=== PATIENT | male | born 1950 | race Two or more races ===

== ENCOUNTER 2017-06-26 17:17 | Emergency (ER) | payer OTHER ==
[~2017-06-26] VITALS: Ht 167.6 cm; Wt 75.3 kg
[2017-06-26 18:14] LABS: CARBON DIOXIDE 25 mmol/L (21-32); CHLORIDE 104 mmol/L (98-107); GLUCOSE 96 mg/dL (74-106); POTASSIUM 4.2 mmol/L (3.5-5.1); UREA NITROGEN, BLOOD 20 mg/dL (7-18)
[2017-06-26 18:21] LABS: ALANINE AMINOTRANSFERASE 34 U/L (16-63); ALKALINE PHOSPHATASE 68 U/L (50-136); ASPARTATE AMINOTRANSFERASE 20 U/L (15-37); BILIRUBIN,DIRECT < 0.1 mg/dL (0.0-0.2); BILIRUBIN,TOTAL 0.2 mg/dL (0.2-1.0); TOTAL PROTEIN, SERUM 7.3 g/dL (6.4-8.2)
[2017-06-26 18:29] LABS: BASOPHILS % (AUTO) 0.5 % (0.0-2.0); EOSINOPHILS # (AUTO) 0.1 K/uL (0.0-0.7); EOSINOPHILS % (AUTO) 1.7 % (0.0-7.0); HEMATOCRIT 43.9 % (36.7-47.1); HEMOGLOBIN 14.5 g/dL (12.5-16.3); LYMPHOCYTES # (AUTO) 1.2 K/uL (20.0-40.0); LYMPHOCYTES % (AUTO) 16.1 % (20.5-51.5); MEAN CORPUSCULAR HEMOGLOBIN 29.2 uug (23.8-33.4); MEAN CORPUSCULAR HGB CONC 33 g/dL (32.5-36.3); MEAN CORPUSCULAR VOLUME 88.5 fL (73.0-96.2); MONOCYTES # (AUTO) 0.8 K/uL (2.0-10.0); MONOCYTES % (AUTO) 10.6 % (0.0-11.0); NEUTROPHILS # (AUTO) 5.4 K/uL (1.8-8.9); NEUTROPHILS % (AUTO) 71.1 % (38.5-71.5); PLATELET COUNT (AUTO) 227 K/uL (152-348); RED BLOOD CELL COUNT(AUTO) 4.96 MIL/uL (4.06-5.63); WHITE BLOOD COUNT (AUTO) 7.5 K/uL (3.6-10.2)
[2017-06-26 18:30] LABS: *BILIRUBIN,URIN NEGATIVE (NEGATIVE); *BLOOD, URINE NEGATIVE (NEGATIVE); *CLARITY,URINE CLEAR (CLEAR); *COLOR,URINE YELLOW (YELLOW); *KETONES,URINE TRACE (NEGATIVE); *PROTEIN,URINE NEGATIVE (NEGATIVE); LEUKOCYTE ESTERASE ,URINE NEGATIVE (NEGATIVE); NITRITE, URINE NEGATIVE (NEGATIVE); UGLUCOSE NEGATIVE (NEGATIVE)
[2017-06-26 18:31] LABS: BACTERIA,URINE NONE SEEN /HPF (NONE SEEN); RBC,URINE 0-3 /HPF (0-3); SQUAMOUS EPITHELIAL CELL,UR NONE SEEN /HPF (NONE SEEN); WBC,URINE 0-3 /HPF (0-3)
--- NOTE | 2017-06-26 18:45 | NUR ---
Dr. Steiner at bedside for MSE.
--- NOTE | 2017-06-26 19:05 | NUR ---
Hands off report given to Carl CADET.
[2017-06-26 19:25] LABS: THYROID STIMULATING HORMONE 1.451 mIU/mL (0.358-3.740)
[2017-06-26 19:27] LABS: ACETAMINOPHEN < 2.0 ug/mL (10-30)
[2017-06-26 19:51] LABS: ETHANOL < 3 MG/DL (0-0)
--- NOTE | 2017-06-26 20:10 | NUR ---
Call made to Christie MCKEONW for patient psych eval, reported ETA 20min ~[phone]
--- NOTE | 2017-06-26 20:15 | NUR ---
Patient came to nursing station requested permission from the doctor to go to his car to get something to eat. Patient out of ER with steady gait.
--- NOTE | 2017-06-26 20:24 | NUR ---
Christie Smalls LCSW arrived.
--- NOTE | 2017-06-26 20:29 | NUR ---
Patient back to ER.
--- NOTE | 2017-06-26 20:30 | NUR ---
Christie Smalls with patient for psych evaluation.
--- NOTE | 2017-06-26 21:00 | NUR ---
Patient discharged to home in stable conditon. Written and verbal after care instructions given. Patient verbalizes understanding of instructions. Patient ambulated out of ER with steady gait, no acute signs of distress, VSS, all belongings taken.
[2017-06-26 21:05] VITALS: BP 159/94
== END 2017-06-26 21:00 | disposition home or self-care (01) ==
LOC: ER 17:18
DX: T50.905A Adverse effect of unspecified drugs, medicaments and biological substances, initial encounter (principal); Y92.89 Other specified places as the place of occurrence of the external cause; Z59.0 Homelessness
CPT/HCPCS: 36415; 70030-TC; 70450; 71045; 84443; 85025; 85730; 93005; A4663; G0480; G0480-TC

== ENCOUNTER 2017-07-26 15:29 | Emergency (ER) | payer OTHER ==
[~2017-07-26] VITALS: Ht 170.2 cm; Wt 77.1 kg
[2017-07-26] MEDS ORDERED: IV NORMAL SALINE 1000 ML BAG IV ONE (17:15)
[2017-07-26 17:51] LABS: CARBON DIOXIDE 29 mmol/L (21-32); CHLORIDE 102 mmol/L (98-107); GLUCOSE 93 mg/dL (74-106); POTASSIUM 3.8 mmol/L (3.5-5.1); UREA NITROGEN, BLOOD 15 mg/dL (7-18)
[2017-07-26 17:52] LABS: BASOPHILS % (AUTO) 0.4 % (0.0-2.0); EOSINOPHILS # (AUTO) 0.1 K/uL (0.0-0.7); EOSINOPHILS % (AUTO) 1.1 % (0.0-7.0); HEMOGLOBIN 14.5 g/dL (12.5-16.3); LYMPHOCYTES # (AUTO) 0.9 K/uL (20.0-40.0); LYMPHOCYTES % (AUTO) 11.5 % (20.5-51.5); MEAN CORPUSCULAR HEMOGLOBIN 29.5 uug (23.8-33.4); MEAN CORPUSCULAR HGB CONC 34 g/dL (32.5-36.3); MEAN CORPUSCULAR VOLUME 87.5 fL (73.0-96.2); MONOCYTES # (AUTO) 0.6 K/uL (2.0-10.0); MONOCYTES % (AUTO) 8.4 % (0.0-11.0); NEUTROPHILS % (AUTO) 78.6 % (38.5-71.5); PLATELET COUNT (AUTO) 224 K/uL (152-348); RED BLOOD CELL COUNT(AUTO) 4.92 MIL/uL (4.06-5.63); WHITE BLOOD COUNT (AUTO) 7.7 K/uL (3.6-10.2)
[2017-07-26 17:52] LABS: *BILIRUBIN,URIN NEGATIVE (NEGATIVE); *BLOOD, URINE NEGATIVE (NEGATIVE); *CLARITY,URINE CLOUDY (CLEAR); *COLOR,URINE YELLOW (YELLOW); *KETONES,URINE NEGATIVE (NEGATIVE); *PROTEIN,URINE NEGATIVE (NEGATIVE); *UROBILINOGEN,URINE 0.2 E.U./dl (NORMAL); LEUKOCYTE ESTERASE ,URINE NEGATIVE (NEGATIVE); NITRITE, URINE NEGATIVE (NEGATIVE); PH,URINE 7.5 (5.0-8.0); UGLUCOSE NEGATIVE (NEGATIVE)
[2017-07-26 17:57] LABS: ALANINE AMINOTRANSFERASE 36 U/L (16-63); ALKALINE PHOSPHATASE 75 U/L (50-136); ASPARTATE AMINOTRANSFERASE 21 U/L (15-37); BILIRUBIN,DIRECT < 0.1 mg/dL (0.0-0.2); BILIRUBIN,TOTAL 0.1 mg/dL (0.2-1.0); TOTAL PROTEIN, SERUM 7.5 g/dL (6.4-8.2)
[2017-07-26 18:04] LABS: BACTERIA,URINE NONE SEEN /HPF (NONE SEEN); RBC,URINE 0-3 /HPF (0-3); SQUAMOUS EPITHELIAL CELL,UR NONE SEEN /HPF (NONE SEEN); URINE AMORPHOUS PHOSPHATES MANY /HPF; WBC,URINE 0-3 /HPF (0-3)
[2017-07-26] MEDS ORDERED: MECLIZINE HCL 25 MG TABLET ONE (18:38)
--- NOTE | 2017-07-26 18:39 | NUR ---
mse completed, all meds admin, iv/d.c'd intact, pt d/c'd home, aci/rx x1 given. pt ambulated w/o diff/took all belongings.
[2017-07-26 18:40] VITALS: BP 148/96
[2017-07-26] MEDS ORDERED: MECLIZINE HCL 25 MG TABLET PO ONE (18:45)
== END 2017-07-26 18:42 | disposition home or self-care (01) ==
LOC: ER 15:31
DX: H81.10 Benign paroxysmal vertigo, unspecified ear (principal); Z59.0 Homelessness; Z85.828 Personal history of other malignant neoplasm of skin
CPT/HCPCS: 36415; 70030-TC; 85025; 93005; A4663; J7030; J8597

== ENCOUNTER 2017-08-30 18:21 | Emergency (ER) | payer OTHER ==
[~2017-08-30] VITALS: Ht 170.2 cm; Wt 78.0 kg
--- NOTE | 2017-08-30 19:02 | NUR ---
Patient ambulated to ER bed 2A, pending MD evaluation, SBAR to HELIO Araujo accordingly
[2017-08-30 19:48] LABS: *BILIRUBIN,URIN NEGATIVE (NEGATIVE); *BLOOD, URINE NEGATIVE (NEGATIVE); *CLARITY,URINE SLIGHTLY CLOUDY (CLEAR); *COLOR,URINE YELLOW (YELLOW); *KETONES,URINE NEGATIVE (NEGATIVE); *PROTEIN,URINE NEGATIVE (NEGATIVE); *UROBILINOGEN,URINE 0.2 E.U./dl (NORMAL); LEUKOCYTE ESTERASE ,URINE NEGATIVE (NEGATIVE); NITRITE, URINE NEGATIVE (NEGATIVE); PH,URINE 7.5 (5.0-8.0); UGLUCOSE NEGATIVE (NEGATIVE)
[2017-08-30 19:51] LABS: BASOPHILS # (AUTO) 0.1 K/uL (0.0-8.0); BASOPHILS % (AUTO) 0.9 % (0.0-2.0); EOSINOPHILS # (AUTO) 0.2 K/uL (0.0-0.7); EOSINOPHILS % (AUTO) 3.2 % (0.0-7.0); HEMATOCRIT 43.4 % (36.7-47.1); HEMOGLOBIN 14.8 g/dL (12.5-16.3); LYMPHOCYTES # (AUTO) 1.6 K/uL (20.0-40.0); LYMPHOCYTES % (AUTO) 24.1 % (20.5-51.5); MEAN CORPUSCULAR HGB CONC 34 g/dL (32.5-36.3); MEAN CORPUSCULAR VOLUME 87.5 fL (73.0-96.2); MONOCYTES # (AUTO) 0.8 K/uL (2.0-10.0); MONOCYTES % (AUTO) 11.5 % (0.0-11.0); NEUTROPHILS # (AUTO) 3.9 K/uL (1.8-8.9); NEUTROPHILS % (AUTO) 60.3 % (38.5-71.5); PLATELET COUNT (AUTO) 230 K/uL (152-348); POTASSIUM 4.2 mmol/L (3.5-5.1); RED BLOOD CELL COUNT(AUTO) 4.96 MIL/uL (4.06-5.63); WHITE BLOOD COUNT (AUTO) 6.5 K/uL (3.6-10.2)
[2017-08-30 19:57] LABS: BACTERIA,URINE NONE SEEN /HPF (NONE SEEN); RBC,URINE 0-3 /HPF (0-3); SQUAMOUS EPITHELIAL CELL,UR NONE SEEN /HPF (NONE SEEN); URINE AMORPHOUS PHOSPHATES FEW /HPF; WBC,URINE 0-3 /HPF (0-3)
[2017-08-30 20:03] LABS: BILIRUBIN,DIRECT 0.1 mg/dL (0.0-0.2); BILIRUBIN,TOTAL 0.3 mg/dL (0.1-1.0); TOTAL PROTEIN, SERUM 7.5 g/dL (6.4-8.2)
--- NOTE | 2017-08-30 20:18 | NUR ---
DPatient discharged to home in stable conditon. Written and verbal after care instructions given. Patient verbalizes understanding of instructions.
[2017-08-30 20:19] VITALS: BP 158/88
== END 2017-08-30 20:20 | disposition home or self-care (01) ==
LOC: ER 18:28
DX: R42 Dizziness and giddiness (principal); Z59.0 Homelessness
CPT/HCPCS: 36415; 80048; 80076; 81001; 84484; 85025; 93005; 99285; A4663; 70030-TC

== ENCOUNTER 2017-09-06 15:18 | Emergency (ER) | payer OTHER ==
[~2017-09-06] VITALS: Ht 170.2 cm; Wt 78.0 kg
== END 2017-09-06 16:00 | disposition left against medical advice (07) ==
LOC: ER 15:21
DX: Z53.21 Procedure and treatment not carried out due to patient leaving prior to being seen by health care provider (principal)
CPT/HCPCS: A4663

== ENCOUNTER 2017-10-12 17:13 | Emergency (ER) | payer OTHER ==
[~2017-10-12] VITALS: Ht 170.2 cm; Wt 77.1 kg
--- NOTE | 2017-10-12 17:49 | NUR ---
Patient is resting comfortably in bed with eyes closed, NAD, pending MD evaluation
[2017-10-12 18:15] LABS: BASOPHILS # (AUTO) 0.1 K/uL (0.0-8.0); BASOPHILS % (AUTO) 1.1 % (0.0-2.0); EOSINOPHILS # (AUTO) 0.2 K/uL (0.0-0.7); EOSINOPHILS % (AUTO) 3.4 % (0.0-7.0); HEMATOCRIT 40.9 % (36.7-47.1); HEMOGLOBIN 13.6 g/dL (12.5-16.3); LYMPHOCYTES # (AUTO) 1.2 K/uL (20.0-40.0); LYMPHOCYTES % (AUTO) 22.7 % (20.5-51.5); MEAN CORPUSCULAR HEMOGLOBIN 29.8 uug (23.8-33.4); MEAN CORPUSCULAR HGB CONC 33 g/dL (32.5-36.3); MEAN CORPUSCULAR VOLUME 89.5 fL (73.0-96.2); MONOCYTES # (AUTO) 0.5 K/uL (2.0-10.0); NEUTROPHILS # (AUTO) 3.3 K/uL (1.8-8.9); NEUTROPHILS % (AUTO) 63.8 % (38.5-71.5); PLATELET COUNT (AUTO) 180 K/uL (152-348); RED BLOOD CELL COUNT(AUTO) 4.56 MIL/uL (4.06-5.63); WHITE BLOOD COUNT (AUTO) 5.2 K/uL (3.6-10.2)
[2017-10-12 18:23] LABS: POTASSIUM 4.4 mmol/L (3.5-5.1)
[2017-10-12 18:30] LABS: BILIRUBIN,TOTAL 0.2 mg/dL (0.2-1.0); TOTAL PROTEIN, SERUM 6.6 g/dL (6.4-8.2)
--- NOTE | 2017-10-12 18:46 | NUR ---
Dr Cleary at bedside evaluating the patient.
--- NOTE | 2017-10-12 19:05 | NUR ---
SBAR to HELIO Araujo- pt needs IV line & IV fluids at this time
[2017-10-12] MEDS ORDERED: IV NORMAL SALINE 1000 ML BAG IV ONE (19:15)
--- NOTE | 2017-10-12 20:30 | NUR ---
Patient discharged to home in stable conditon. Written and verbal after care instructions given. Patient verbalizes understanding of instructions. Patient able to ambulate unassisted with a steady gait. Patient left with all personal belongings.
[2017-10-12 20:33] VITALS: BP 145/84
== END 2017-10-12 20:30 | disposition home or self-care (01) ==
LOC: ER 17:16
DX: R51 Headache (principal); H81.10 Benign paroxysmal vertigo, unspecified ear; Z59.0 Homelessness
CPT/HCPCS: 36415; 71045; 80053; 82550; 84484; 85025; 85610; 93005; 96360; 99285; A4663; J7030; 70030-TC

== ENCOUNTER 2017-10-18 21:11 | Emergency (ER) | payer OTHER ==
--- NOTE | 2017-10-18 21:59 | NUR ---
PATIENT LEFT WITHOUT BEING TRIAGED OR SEEN BY ERMD
== END 2017-10-18 22:00 | disposition left against medical advice (07) ==
LOC: ER 21:13
DX: Z53.21 Procedure and treatment not carried out due to patient leaving prior to being seen by health care provider (principal)

== ENCOUNTER 2017-10-26 22:33 | Emergency (ER) | payer OTHER ==
[~2017-10-26] VITALS: Ht 170.2 cm; Wt 78.0 kg
[2017-10-26] MEDS ORDERED: MORPHINE SULFATE 2 MG/1 ML DISP.SYRIN IV ONE (23:45)
[2017-10-26] MEDS ORDERED: IV NORMAL SALINE 1000 ML BAG IV ONE (23:45)
[2017-10-26] MEDS ORDERED: ONDANSETRON 4 MG/2 ML VIAL IV ONE (23:45)
[2017-10-26 23:53] LABS: BASOPHILS # (AUTO) 0.1 K/uL (0.0-8.0); BASOPHILS % (AUTO) 1.3 % (0.0-2.0); EOSINOPHILS # (AUTO) 0.2 K/uL (0.0-0.7); EOSINOPHILS % (AUTO) 3.9 % (0.0-7.0); HEMATOCRIT 41.4 % (36.7-47.1); HEMOGLOBIN 14.2 g/dL (12.5-16.3); LYMPHOCYTES # (AUTO) 1.4 K/uL (20.0-40.0); LYMPHOCYTES % (AUTO) 24.4 % (20.5-51.5); MEAN CORPUSCULAR HEMOGLOBIN 30.4 uug (23.8-33.4); MEAN CORPUSCULAR HGB CONC 34 g/dL (32.5-36.3); MEAN CORPUSCULAR VOLUME 88.5 fL (73.0-96.2); MONOCYTES # (AUTO) 0.6 K/uL (2.0-10.0); MONOCYTES % (AUTO) 10.1 % (0.0-11.0); NEUTROPHILS # (AUTO) 3.5 K/uL (1.8-8.9); NEUTROPHILS % (AUTO) 60.3 % (38.5-71.5); PLATELET COUNT (AUTO) 193 K/uL (152-348); RED BLOOD CELL COUNT(AUTO) 4.68 MIL/uL (4.06-5.63); WHITE BLOOD COUNT (AUTO) 5.8 K/uL (3.6-10.2)
[2017-10-26] MEDS ORDERED: ONDANSETRON 4 MG/2 ML VIAL ONE (23:55)
[2017-10-26] MEDS ORDERED: MORPHINE SULFATE 4 MG/1 ML DISP.SYRIN ONE (23:55)
--- NOTE | 2017-10-27 00:13 | NUR ---
Pt went down to radiology dept. for CT scan.
[2017-10-27 00:20] LABS: POTASSIUM 3.6 mmol/L (3.5-5.1)
[2017-10-27 00:26] LABS: BILIRUBIN,DIRECT 0.1 mg/dL (0.0-0.2); BILIRUBIN,TOTAL 0.3 mg/dL (0.2-1.0)
[2017-10-27] MEDS ORDERED: HYDROCODONE/APAP 5-325MG TABLET ONE (01:13)
[2017-10-27] MEDS ORDERED: HYDROCODONE/APAP 5-325MG TABLET PO ONE (01:15)
--- NOTE | 2017-10-27 03:11 | NUR ---
IV removed. Catheter intact and site benign. Pressure and 4x4 gauze applied to site. No bleeding noted.
--- NOTE | 2017-10-27 03:11 | NUR ---
Patient discharged to home in stable conditon. Written and verbal after care instructions given. Patient verbalizes understanding of instructions.
[2017-10-27 03:14] VITALS: BP 157/94
== END 2017-10-27 03:31 | disposition home or self-care (01) ==
LOC: ER 22:34
DX: R51 Headache (principal); H81.10 Benign paroxysmal vertigo, unspecified ear; Z59.0 Homelessness
CPT/HCPCS: 36415; 70450; 80048; 80076; 83880; 84484; 85025; 85730; 93005; 96372; 99285; A4663; J2270; J7030; 70030-TC; J2405

== ENCOUNTER 2017-11-09 20:37 | Emergency (ER) | payer OTHER ==
[~2017-11-09] VITALS: Ht 170.2 cm; Wt 78.0 kg
--- NOTE | 2017-11-09 21:00 | NUR ---
Dr. Cleary at bedside for MSE.
[2017-11-09] MEDS ORDERED: IV NORMAL SALINE 1000 ML BAG IV ONE (21:15)
[2017-11-09] MEDS ORDERED: diphenhydrAMINE 50 MG/1 ML VIAL IV ONE (21:15)
[2017-11-09] MEDS ORDERED: METOCLOPRAMIDE HCL 10 MG/2 ML VIAL IV ONE (21:15)
[2017-11-09] MEDS ORDERED: METOCLOPRAMIDE HCL 10 MG/2 ML VIAL ONE (21:21)
[2017-11-09] MEDS ORDERED: diphenhydrAMINE 50 MG/1 ML VIAL ONE (21:21)
[2017-11-09] MEDS ORDERED: MECLIZINE HCL 25 MG TABLET PO ONE (22:45)
[2017-11-09] MEDS ORDERED: MECLIZINE HCL 25 MG TABLET ONE (22:55)
--- NOTE | 2017-11-10 00:38 | NUR ---
Patient discharged to home in stable conditon. Written and verbal after care instructions given. Patient verbalizes understanding of instructions. Pt ambulated out of ER with steady gait, no acute signs of distress, VSS, all belongings taken, IV site discontinued.
[2017-11-10 00:50] VITALS: BP 158/78
== END 2017-11-10 00:51 | disposition home or self-care (01) ==
LOC: ER 20:39
DX: R51 Headache (principal); H81.10 Benign paroxysmal vertigo, unspecified ear; Z59.0 Homelessness
CPT/HCPCS: 96361; 96374; 96375; 99284; A4663; J1200; J2765; J7030; J8597

== ENCOUNTER 2018-01-06 22:27 | Emergency (ER) | payer MEDICAID, OTHER ==
[~2018-01-06] VITALS: Ht 170.2 cm; Wt 78.0 kg
--- NOTE | 2018-01-06 22:31 | NUR ---
Patient ambulated from ER waiting area to the street. Patient is not in waiting room at first call to triage.
--- NOTE | 2018-01-06 22:45 | NUR ---
PT A/OX4, RESPONSIVE TO VERBAL AND TACTILE STIMULI. PT C/O VERTIGO. PT HAS A HX OF VERTIGO. SECONDARY COMPLAINT: R CHEST PAIN THAT STARTED 2 DAYS AGO, NO PROVOKING FACTOR, PRESSURE IN QUALITY, RADIATES TO MID-CHEST, 5/10, INTERMITTENT. TERTIARY COMPLAINT: R LEG PAIN X1 MONTH. PT STATES HE WAS SEEN BY A PHYSICIAN AND WAS D/C W/ NO DIAGNOSIS RELATED TO HIS R LEG PAIN. RLE APPEARS RED AND IS WARM TO TOUCH. VSS. PT DENIES SOB, N/V/D, DIZZINESS, HEADACHE.
--- NOTE | 2018-01-06 22:53 | NUR ---
JADE ELLIOTT AT BEDSIDE.
[2018-01-06] MEDS ORDERED: VANCOMYCIN IV 1,000 MG in IV DEXTROSE 5% 250 ML IV ONE (23:00)
[2018-01-06] MEDS ORDERED: IV NORMAL SALINE 1000 ML BAG IV ONE (23:00)
[2018-01-06] MEDS ORDERED: VANCOMYCIN IV 200 ML ONE (23:08)
[2018-01-06 23:18] LABS: BASOPHILS # (AUTO) 0.1 K/uL (0.0-8.0); BASOPHILS % (AUTO) 1.5 % (0.0-2.0); EOSINOPHILS # (AUTO) 0.2 K/uL (0.0-0.7); HEMOGLOBIN 13.9 g/dL (12.5-16.3); LYMPHOCYTES # (AUTO) 1.3 K/uL (20.0-40.0); MEAN CORPUSCULAR HEMOGLOBIN 30.3 uug (23.8-33.4); MEAN CORPUSCULAR HGB CONC 34 g/dL (32.5-36.3); MEAN CORPUSCULAR VOLUME 89.2 fL (73.0-96.2); MONOCYTES # (AUTO) 0.6 K/uL (2.0-10.0); MONOCYTES % (AUTO) 8.5 % (0.0-11.0); NEUTROPHILS # (AUTO) 4.8 K/uL (1.8-8.9); PLATELET COUNT (AUTO) 212 K/uL (152-348)
[2018-01-06 23:21] LABS: CREATININE 1.1 mg/dL (0.6-1.3); POTASSIUM 3.8 mmol/L (3.5-5.1)
[2018-01-06 23:34] LABS: BILIRUBIN,DIRECT 0.1 mg/dL (0.0-0.2); BILIRUBIN,TOTAL 0.4 mg/dL (0.2-1.0); TOTAL PROTEIN, SERUM 7.1 g/dL (6.4-8.2)
--- NOTE | 2018-01-06 23:47 | NUR ---
US TECH AT BEDSIDE.
--- NOTE | 2018-01-07 02:04 | NUR ---
[employer] AT BEDSIDE FOR REPEAT LAB.
[2018-01-07] MEDS ORDERED: ACETAMINOPHEN ES 500 MG TABLET ONE (02:40)
[2018-01-07] MEDS ORDERED: ACETAMINOPHEN ES 500 MG TABLET PO ONE (02:45)
--- NOTE | 2018-01-07 02:46 | NUR ---
Patient discharged to home in stable conditon. Written and verbal after care instructions given. Patient verbalizes understanding of instructions. PT D/C W/ PRESCRIPTION. ALL BELONGINGS W/ PT. PT SELF-AMBULATED WITHOUT DIFFICULTY.
[2018-01-07 02:51] VITALS: BP 150/74
--- NOTE | 2018-01-07 02:55 | NUR ---
18G RUE IV ACCESS REMOVED PRIOR TO D/C. INNER CANNULA INTACT.
== END 2018-01-07 02:56 | disposition home or self-care (01) ==
LOC: ER 22:29
DX: L03.116 Cellulitis of left lower limb (principal); R07.9 Chest pain, unspecified; Z59.0 Homelessness
CPT/HCPCS: 36415 ×2; 71045; 80048; 80076; 83880; 84484 ×2; 85025; 85730; 93005; 93971; 96365; 96366; 99285; J3370; 70030-TC; A4663; A9150; J7030

== ENCOUNTER 2018-03-17 00:15 | Emergency (ER) | payer MEDICAID, OTHER ==
[~2018-03-17] VITALS: Ht 167.6 cm; Wt 79.8 kg
--- NOTE | 2018-03-17 00:37 | NUR ---
PT A/OX4, PRESENTS TO THE ER C/O DIZZINESS THAT STARTED COUPLE OF DAYS AGO. NO FACIAL DROOP, CLEAR IN SPEECH, EQUAL [employer] BILATERALLY, PERRLA. SECONDARY COMPLAINT: BILATERAL HEEL PAIN. PT UNABLE TO RECALL WHEN THE PAIN STARTED, NON-PROVOKING, ACHING IN QUALITY, NO RADIATION, 06/22, CONSTANT. VSS. PT DENIES C/P, SOB, N/V/D, DIZZINESS, HEADACHE. Addendum: 03/17/18 at 0041 by BELIA PT DENIES C/P, SOB, N/V/D, HEADACHE.
--- NOTE | 2018-03-17 01:31 | NUR ---
JADE ELLIOTT AT BEDSIDE FOR MSE.
[2018-03-17] MEDS ORDERED: IV NORMAL SALINE 1000 ML BAG IV ONE (01:45)
--- NOTE | 2018-03-17 01:54 | NUR ---
US TECH AT BEDSIDE.
[2018-03-17 01:57] LABS: BASOPHILS # (AUTO) 0.1 K/uL (0.0-8.0); BASOPHILS % (AUTO) 1.3 % (0.0-2.0); EOSINOPHILS # (AUTO) 0.2 K/uL (0.0-0.7); EOSINOPHILS % (AUTO) 3.4 % (0.0-7.0); HEMATOCRIT 41.5 % (36.7-47.1); HEMOGLOBIN 13.9 g/dL (12.5-16.3); LYMPHOCYTES # (AUTO) 1.4 K/uL (20.0-40.0); LYMPHOCYTES % (AUTO) 20.9 % (20.5-51.5); MEAN CORPUSCULAR HEMOGLOBIN 29.6 uug (23.8-33.4); MEAN CORPUSCULAR HGB CONC 34 g/dL (32.5-36.3); MEAN CORPUSCULAR VOLUME 88.3 fL (73.0-96.2); MONOCYTES # (AUTO) 0.7 K/uL (2.0-10.0); MONOCYTES % (AUTO) 9.9 % (0.0-11.0); NEUTROPHILS # (AUTO) 4.3 K/uL (1.8-8.9); NEUTROPHILS % (AUTO) 64.5 % (38.5-71.5); PLATELET COUNT (AUTO) 200 K/uL (152-348); WHITE BLOOD COUNT (AUTO) 6.7 K/uL (3.6-10.2)
[2018-03-17 02:05] LABS: ALANINE AMINOTRANSFERASE 29 U/L (16-63); ALKALINE PHOSPHATASE 58 U/L (50-136); ASPARTATE AMINOTRANSFERASE 27 U/L (15-37); BILIRUBIN,DIRECT < 0.1 mg/dL (0.0-0.2); BILIRUBIN,TOTAL 0.4 mg/dL (0.2-1.0); CARBON DIOXIDE 28 mmol/L (21-32); CHLORIDE 105 mmol/L (98-107); GLUCOSE 95 mg/dL (74-106); POTASSIUM 4.2 mmol/L (3.5-5.1); TOTAL PROTEIN, SERUM 7.4 g/dL (6.4-8.2); UREA NITROGEN, BLOOD 18 mg/dL (7-18)
--- NOTE | 2018-03-17 03:11 | NUR ---
Patient states "I feel alot better now."
--- NOTE | 2018-03-17 03:12 | NUR ---
IV removed. Catheter intact and site benign. Pressure and 4x4 gauze applied to site. No bleeding noted.
[2018-03-17 03:17] VITALS: BP 160/88
--- NOTE | 2018-03-17 03:19 | NUR ---
Patient discharged to home in stable conditon. Written and verbal after care instructions given. Patient verbalizes understanding of instructions. Walked out of ER with no distress noted
== END 2018-03-17 03:20 | disposition home or self-care (01) ==
LOC: ER 00:17
DX: R60.9 Edema, unspecified (principal); Z59.0 Homelessness
CPT/HCPCS: 36415; 70030-TC; 85025; 85730; A4663; J7030

== ENCOUNTER 2018-04-09 16:25 | Emergency (ER) | payer OTHER ==
[~2018-04-09] VITALS: Ht 170.2 cm; Wt 79.8 kg
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
--- NOTE | 2018-04-09 17:06 | NUR ---
JADE ELLIOTT AT BEDSIDE FOR MSE.
[2018-04-09] MEDS ORDERED: AMLODIPINE 5 MG TABLET PO ONE (17:15)
[2018-04-09] MEDS ORDERED: MECLIZINE HCL 25 MG TABLET PO ONE (17:15)
[2018-04-09] MEDS ORDERED: IV NORMAL SALINE 1000 ML BAG IV ONE (17:15)
[2018-04-09] MEDS ORDERED: AMLODIPINE 5 MG TABLET ONE (17:20)
[2018-04-09] MEDS ORDERED: MECLIZINE HCL 25 MG TABLET ONE (17:20)
--- NOTE | 2018-04-09 17:31 | NUR ---
BP 183/115, ER MADE AWARE.
[2018-04-09 17:33] LABS: BASOPHILS # (AUTO) 0.1 K/uL (0.0-8.0); BASOPHILS % (AUTO) 1.2 % (0.0-2.0); EOSINOPHILS # (AUTO) 0.2 K/uL (0.0-0.7); EOSINOPHILS % (AUTO) 3.9 % (0.0-7.0); HEMATOCRIT 43.7 % (36.7-47.1); HEMOGLOBIN 14.4 g/dL (12.5-16.3); LYMPHOCYTES # (AUTO) 1.3 K/uL (20.0-40.0); LYMPHOCYTES % (AUTO) 21.3 % (20.5-51.5); MEAN CORPUSCULAR HEMOGLOBIN 28.5 uug (23.8-33.4); MEAN CORPUSCULAR HGB CONC 33 g/dL (32.5-36.3); MEAN CORPUSCULAR VOLUME 86.6 fL (73.0-96.2); MONOCYTES # (AUTO) 0.7 K/uL (2.0-10.0); MONOCYTES % (AUTO) 10.7 % (0.0-11.0); NEUTROPHILS # (AUTO) 3.9 K/uL (1.8-8.9); NEUTROPHILS % (AUTO) 62.9 % (38.5-71.5); PLATELET COUNT (AUTO) 230 K/uL (152-348); RED BLOOD CELL COUNT(AUTO) 5.05 MIL/uL (4.06-5.63); WHITE BLOOD COUNT (AUTO) 6.1 K/uL (3.6-10.2)
[2018-04-09 17:41] LABS: CREATININE 1.1 mg/dL (0.6-1.3); POTASSIUM 3.9 mmol/L (3.5-5.1)
[2018-04-09] MEDS ORDERED: LABETALOL HCL 100 MG/20 ML VIAL IV ONE (17:45)
[2018-04-09 17:46] LABS: BILIRUBIN,DIRECT 0.1 mg/dL (0.0-0.2); BILIRUBIN,TOTAL 0.2 mg/dL (0.2-1.0); TOTAL PROTEIN, SERUM 7.7 g/dL (6.4-8.2)
--- NOTE | 2018-04-09 18:25 | NUR ---
JADE ELLIOTT AT BEDSIDE FOR PT UPDATE.
--- NOTE | 2018-04-09 19:01 | NUR ---
Patient discharged to home in stable conditon. Written and verbal after care instructions given. Patient verbalizes understanding of instructions. ALL BELONGINGS W/ PT. PT D/C W/ PRESCRIPTIONS. PT SELF-AMBULATED W/O DIFFICULTY. ER AWARE OF PT'S RECENT BP, 162/92. PROCEED W/ D/C. 20G IV ACCESS IN L AC REMOVED PRIOR TO D/C - INNER CANNULA INTACT.
[2018-04-09 19:03] VITALS: BP 162/92
== END 2018-04-09 19:07 | disposition home or self-care (01) ==
LOC: ER 16:27
DX: I10 Essential (primary) hypertension (principal); H81.10 Benign paroxysmal vertigo, unspecified ear
CPT/HCPCS: 36415; 71045; 80048; 80076; 84484; 85025; 93005; 96361; 96374; 99284; J3490; 70030-TC; A4663; J7030; J8597

== ENCOUNTER 2018-04-23 05:21 | Emergency (ER) | payer OTHER ==
[~2018-04-23] VITALS: Ht 170.2 cm; Wt 79.8 kg
[2018-04-23] MEDS ORDERED: AMLO10TA4 PO (05:28)
[2018-04-23] MEDS ORDERED: IBU 600 MG TABLET (05:28)
--- NOTE | 2018-04-23 05:50 | NUR ---
Dr. Steiner at bedside for MSE.
[2018-04-23] MEDS ORDERED: methylPREDNISolone SOD SUCC 125 MG/2 ML VIAL IV ONE (06:00)
[2018-04-23] MEDS ORDERED: IV NORMAL SALINE 1000 ML BAG IV ONE (06:00)
[2018-04-23] MEDS ORDERED: FAMOTIDINE. 20 MG/2 ML VIAL IV ONE ×2 (06:00→06:12)
[2018-04-23] MEDS ORDERED: methylPREDNISolone SOD SUCC 125 MG/2 ML VIAL ONE (06:13)
[2018-04-23 06:19] LABS: BASOPHILS # (AUTO) 0.1 K/uL (0.0-8.0); EOSINOPHILS # (AUTO) 0.3 K/uL (0.0-0.7); EOSINOPHILS % (AUTO) 4.9 % (0.0-7.0); HEMATOCRIT 42.1 % (36.7-47.1); HEMOGLOBIN 14.2 g/dL (12.5-16.3); LYMPHOCYTES # (AUTO) 0.9 K/uL (20.0-40.0); LYMPHOCYTES % (AUTO) 14.9 % (20.5-51.5); MEAN CORPUSCULAR HEMOGLOBIN 29.1 uug (23.8-33.4); MEAN CORPUSCULAR HGB CONC 34 g/dL (32.5-36.3); MEAN CORPUSCULAR VOLUME 86.4 fL (73.0-96.2); MONOCYTES # (AUTO) 0.6 K/uL (2.0-10.0); MONOCYTES % (AUTO) 8.9 % (0.0-11.0); NEUTROPHILS # (AUTO) 4.5 K/uL (1.8-8.9); NEUTROPHILS % (AUTO) 70.3 % (38.5-71.5); PLATELET COUNT (AUTO) 226 K/uL (152-348); RED BLOOD CELL COUNT(AUTO) 4.88 MIL/uL (4.06-5.63); WHITE BLOOD COUNT (AUTO) 6.4 K/uL (3.6-10.2)
[2018-04-23 06:26] LABS: POTASSIUM 4.3 mmol/L (3.5-5.1)
[2018-04-23 06:31] LABS: BILIRUBIN,DIRECT 0.1 mg/dL (0.0-0.2); BILIRUBIN,TOTAL 0.4 mg/dL (0.2-1.0)
[2018-04-23 06:32] LABS: TOTAL PROTEIN, SERUM 7.8 g/dL (6.4-8.2)
--- NOTE | 2018-04-23 07:07 | NUR ---
Report given to Terri soria.
--- NOTE | 2018-04-23 07:36 | NUR ---
Received patient for discharged to home. Patient left ER in stable conditon & steady gait. Written and verbal after care instructions given. Patient verbalizes understanding of instructions. Copies of the diagnostic tests were provided per patient's request.
--- NOTE | 2018-04-23 07:55 | NUR ---
Patient came back complaining of nosebleeding (right side), Dr Burks notified.
[2018-04-23] MEDS ORDERED: EPINEPHRINE 1 MG/1 ML AMP ONE ×2 (07:58→08:05)
[2018-04-23] MEDS ORDERED: EPINEPHRINE-PF 1:1000 1 MG/ML AMPUL IV ONE (08:00)
--- NOTE | 2018-04-23 08:05 | NUR ---
Monitoring patient for control of epistaxis, nasal pack is now on.
--- NOTE | 2018-04-23 08:22 | NUR ---
No active nosebleeding seen. Additional discharge instructions given to patient. Patient discharged to home with steady gait & stable conditon. Patient verbalizes understanding of instructions.
[2018-04-24] MEDS ORDERED: EPINEPHRINE-PF 1:1000 1 MG/ML AMPUL IM ONE (15:41)
== END 2018-04-23 08:26 | disposition home or self-care (01) ==
LOC: ER 05:22
DX: R04.0 Epistaxis (principal); L30.9 Dermatitis, unspecified; I10 Essential (primary) hypertension; Z79.899 Other long term (current) drug therapy
CPT/HCPCS: 30901; 36415; 80048; 80076; 84484; 85025; 96374; 96375; 99284; J0171 ×2; J2930; J3490; 70030-TC; A4663; J7030

== ENCOUNTER 2018-04-24 12:50 | Emergency (ER) | payer OTHER ==
[~2018-04-24] VITALS: Ht 170.2 cm; Wt 79.4 kg
[~2018-04-24 12:50] MED LIST: AMLO10TA4 PO; IBU 600 MG TABLET
--- NOTE | 2018-04-24 13:15 | NUR ---
Dr Cleary at the bedside for MSE.
--- NOTE | 2018-04-24 14:12 | NUR ---
RT NARES PACKING REMOVED BY MD. NOSE CLIP PLACED BY MD. NO BLEEDING NOTED.
--- NOTE | 2018-04-24 14:22 | NUR ---
Nose clip removed per MD order, no bleeding noted.
[2018-04-24] MEDS ORDERED: MECLIZINE HCL 25 MG TABLET ONE (14:27)
[2018-04-24] MEDS ORDERED: MECLIZINE HCL 25 MG TABLET PO ONE (14:30)
--- NOTE | 2018-04-24 14:42 | NUR ---
Patient discharged to home in stable conditon. Written and verbal after care instructions given. Patient verbalizes understanding of instructions.
[2018-04-24 14:44] VITALS: BP 141/76
== END 2018-04-24 14:45 | disposition home or self-care (01) ==
LOC: ER 12:50
DX: R04.0 Epistaxis (principal); I10 Essential (primary) hypertension; Z79.899 Other long term (current) drug therapy
CPT/HCPCS: A4663; J8597

== ENCOUNTER 2018-05-08 19:47 | Emergency (ER) | payer OTHER ==
[~2018-05-08] VITALS: Ht 170.2 cm; Wt 80.3 kg
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
[2018-05-08] MEDS ORDERED: ONDANSETRON 4 MG/2 ML VIAL ONE ×2 (20:21→21:48)
[2018-05-08] MEDS ORDERED: HYDROMORPHONE 1 MG/1 ML DISP.SYRIN ONE ×2 (20:21→21:47)
[2018-05-08] MEDS ORDERED: HYDROMORPHONE 1 MG/1 ML DISP.SYRIN IV ONE ×2 (20:30→21:45)
[2018-05-08] MEDS ORDERED: IV NORMAL SALINE 1000 ML BAG IV ONE (20:30)
[2018-05-08] MEDS ORDERED: ONDANSETRON 4 MG/2 ML VIAL IV ONE (20:30)
--- NOTE | 2018-05-08 20:46 | NUR ---
Patient in bed, NAD VSS
[2018-05-08] MEDS ORDERED: ONDANSETRON IV *ER 4 MG/2 ML VIAL IV ONE (21:45)
[2018-05-08 23:24] LABS: *BILIRUBIN,URIN NEGATIVE (NEGATIVE); *BLOOD, URINE NEGATIVE (NEGATIVE); *CLARITY,URINE CLEAR (CLEAR); *COLOR,URINE YELLOW (YELLOW); *KETONES,URINE NEGATIVE (NEGATIVE); LEUKOCYTE ESTERASE ,URINE NEGATIVE (NEGATIVE); NITRITE, URINE NEGATIVE (NEGATIVE); PH,URINE 6.5 (5.0-8.0); UGLUCOSE NEGATIVE (NEGATIVE)
[2018-05-08 23:34] LABS: BACTERIA,URINE NONE SEEN /HPF (NONE SEEN); MUCUS,URINE MANY /LPF (0-FEW); RBC,URINE 0-3 /HPF (0-3); SQUAMOUS EPITHELIAL CELL,UR FEW /HPF (NONE SEEN); WBC,URINE 0-3 /HPF (0-3)
--- NOTE | 2018-05-09 00:52 | NUR ---
Patient given written and verbal discharge instructions. Patient verbalizes understanding of instructions. Patient is ambulatory with steady gait. Refuses offer of care home placement. Patient given list of available shelters in surrounding area. Patient ambulated with stable gait. Instructed not to drive. Patient understands risks.
== END 2018-05-09 01:00 | disposition home or self-care (01) ==
LOC: ER 19:48
DX: R51 Headache (principal); R21 Rash and other nonspecific skin eruption; I10 Essential (primary) hypertension; Z79.899 Other long term (current) drug therapy
CPT/HCPCS: 70450; 81001; 96361; 96374; 96375; 96376; 99284; J1170 ×2; J2405 ×2; A4663; J7030

== ENCOUNTER 2018-05-09 14:59 | Emergency (ER) | payer OTHER ==
[~2018-05-09] VITALS: Ht 170.2 cm; Wt 8.2 kg
--- NOTE | 2018-05-09 16:13 | NUR ---
Patient discharged to home in stable conditon. Written and verbal after care instructions given. Patient verbalizes understanding of instructions.PT WALKS IN STEADY GAIT.
== END 2018-05-09 16:15 | disposition home or self-care (01) ==
LOC: ER 14:59
DX: F22 Delusional disorders (principal); R21 Rash and other nonspecific skin eruption; I10 Essential (primary) hypertension; Z79.1 Long term (current) use of non-steroidal anti-inflammatories (NSAID); Z79.899 Other long term (current) drug therapy
CPT/HCPCS: A4663

== ENCOUNTER 2018-05-12 17:12 | Emergency (ER) | payer OTHER ==
[~2018-05-12] VITALS: Ht 170.2 cm; Wt 81.6 kg
--- NOTE | 2018-05-12 17:30 | NUR ---
PT PREFERS TO WAIT TO BE SEEN BY DIVINA GUERRA. HOSPITAL SANDWICH AND COMFORT MEASURE PROVIDED MEAN WHILE.
--- NOTE | 2018-05-12 18:55 | NUR ---
Dr Cleary at the bedside for MSE.
--- NOTE | 2018-05-12 19:03 | NUR ---
Report given to Karlos CADET ve teacher.
[2018-05-12 19:48] LABS: BASOPHILS # (AUTO) 0.1 K/uL (0.0-8.0); BASOPHILS % (AUTO) 0.6 % (0.0-2.0); EOSINOPHILS % (AUTO) 0.1 % (0.0-7.0); HEMATOCRIT 37.5 % (36.7-47.1); HEMOGLOBIN 12.5 g/dL (12.5-16.3); LYMPHOCYTES # (AUTO) 0.9 K/uL (20.0-40.0); MEAN CORPUSCULAR HGB CONC 33 g/dL (32.5-36.3); MEAN CORPUSCULAR VOLUME 86.8 fL (73.0-96.2); MONOCYTES # (AUTO) 0.5 K/uL (2.0-10.0); MONOCYTES % (AUTO) 5.5 % (0.0-11.0); NEUTROPHILS # (AUTO) 8.5 K/uL (1.8-8.9); NEUTROPHILS % (AUTO) 84.8 % (38.5-71.5); PLATELET COUNT (AUTO) 257 K/uL (152-348); RED BLOOD CELL COUNT(AUTO) 4.32 MIL/uL (4.06-5.63)
[2018-05-12 19:56] LABS: POTASSIUM 3.8 mmol/L (3.5-5.1)
[2018-05-12 20:07] LABS: BILIRUBIN,TOTAL 0.3 mg/dL (0.2-1.0); TOTAL PROTEIN, SERUM 7.4 g/dL (6.4-8.2)
--- NOTE | 2018-05-12 20:12 | NUR ---
Patient in bed resting. VSS, NAD.
--- NOTE | 2018-05-12 21:10 | NUR ---
Patient given written and verbal discharge instructions. Patient verbalizes understanding of instructions. Patient is ambulatory with stable gait. Refuses offer of [facility] placement. Patient given list of available shelters in surrounding area.
== END 2018-05-12 21:12 | disposition home or self-care (01) ==
LOC: ER 17:14
DX: R04.0 Epistaxis (principal); I10 Essential (primary) hypertension; Z79.899 Other long term (current) drug therapy
CPT/HCPCS: 36415; 85025; A4663

== ENCOUNTER 2018-05-14 12:43 | Emergency (ER) | payer OTHER ==
[~2018-05-14] VITALS: Ht 170.2 cm; Wt 81.6 kg
--- NOTE | 2018-05-14 13:25 | NUR ---
PT IS IN ROOM #2A. DR MANE EVALUATED THE PT.
[2018-05-14 13:33] LABS: BASOPHILS # (AUTO) 0.1 K/uL (0.0-8.0); EOSINOPHILS # (AUTO) 0.2 K/uL (0.0-0.7); EOSINOPHILS % (AUTO) 3.2 % (0.0-7.0); HEMOGLOBIN 12.7 g/dL (12.5-16.3); LYMPHOCYTES # (AUTO) 1.2 K/uL (20.0-40.0); LYMPHOCYTES % (AUTO) 19.8 % (20.5-51.5); MEAN CORPUSCULAR HGB CONC 34 g/dL (32.5-36.3); MEAN CORPUSCULAR VOLUME 86.7 fL (73.0-96.2); MONOCYTES # (AUTO) 0.6 K/uL (2.0-10.0); MONOCYTES % (AUTO) 9.9 % (0.0-11.0); NEUTROPHILS # (AUTO) 3.9 K/uL (1.8-8.9); NEUTROPHILS % (AUTO) 66.1 % (38.5-71.5); PLATELET COUNT (AUTO) 227 K/uL (152-348); RED BLOOD CELL COUNT(AUTO) 4.39 MIL/uL (4.06-5.63); WHITE BLOOD COUNT (AUTO) 5.9 K/uL (3.6-10.2)
[2018-05-14 13:39] LABS: CREATININE 0.7 mg/dL (0.6-1.3); POTASSIUM 3.7 mmol/L (3.5-5.1)
[2018-05-14 13:45] LABS: BILIRUBIN,DIRECT 0.1 mg/dL (0.0-0.2); BILIRUBIN,TOTAL 0.3 mg/dL (0.2-1.0)
[2018-05-14 17:20] VITALS: BP 136/81
--- NOTE | 2018-05-14 17:21 | NUR ---
PT WAS D/C TO HOME. D/C INSTRUCTIONS GIVEN TO THE PT.
== END 2018-05-14 17:31 | disposition home or self-care (01) ==
LOC: ER 12:43
DX: R07.9 Chest pain, unspecified (principal); R42 Dizziness and giddiness; I10 Essential (primary) hypertension; Z79.899 Other long term (current) drug therapy
CPT/HCPCS: 36415; 70030-TC; 71045; 85025; 93005; A4663

== ENCOUNTER 2018-05-28 00:09 | Emergency (ER) | payer OTHER ==
[~2018-05-28] VITALS: Ht 170.2 cm; Wt 82.6 kg
--- NOTE | 2018-05-28 00:25 | NUR ---
Patient ambulated with stable gait. Patient AAOx4. Patient speech clear, speaks in complete sentences. Patient came in with c/o abd pain + RLE swelling and itchiness all over body. Respiratory even and unlabored. Patient in bed at lowest position, side rails upx2, call light within reach. Fall precautions implemented per protocol.
--- NOTE | 2018-05-28 01:35 | NUR ---
US TECH AT BEDSIDE.
--- NOTE | 2018-05-28 03:40 | NUR ---
Patient discharged to home in stable conditon. Written and verbal after care instructions given. Patient verbalizes understanding of instructions. Patient ambulated with stable gait.
[2018-05-28 03:41] VITALS: BP 140/83
== END 2018-05-28 03:42 | disposition home or self-care (01) ==
LOC: ER 00:10
DX: G89.29 Other chronic pain (principal); M79.604 Pain in right leg; M79.605 Pain in left leg; I10 Essential (primary) hypertension; Z79.1 Long term (current) use of non-steroidal anti-inflammatories (NSAID); Z79.899 Other long term (current) drug therapy
CPT/HCPCS: A4663

== ENCOUNTER → 2018-07-19 | Emergency (ER) | payer OTHER ==
[~2018-07-19] VITALS: Ht 170.2 cm; Wt 80.7 kg
--- NOTE | 2018-07-19 00:51 | NUR ---
Dr. Cleary at bedside for MSE.
--- NOTE | 2018-07-19 02:07 | NUR ---
Ultrasound at bedside.
--- NOTE | 2018-07-19 02:48 | NUR ---
Patient discharged to home in stable conditon. Written and verbal after care instructions given. Patient verbalizes understanding of instructions. Pt ambulated out of ER with steady gait, no acute signs of distress, VSS, all belongings taken.
[2018-07-19 02:50] VITALS: BP 138/85
== END | disposition home or self-care (01) ==
LOC: ER 03:32
DX: R60.9 Edema, unspecified (principal); I10 Essential (primary) hypertension; Z76.0 Encounter for issue of repeat prescription; Z79.899 Other long term (current) drug therapy
CPT/HCPCS: A4663

== ENCOUNTER 2018-09-07 05:25 | Emergency (ER) | payer MEDICAID, OTHER ==
[~2018-09-07] VITALS: Ht 170.2 cm; Wt 80.7 kg
[2018-09-07] MEDS ORDERED: MECLIZINE HCL 25 MG TABLET ONE (05:53)
[2018-09-07] MEDS ORDERED: MECLIZINE HCL 25 MG TABLET PO ONE (06:00)
--- NOTE | 2018-09-07 06:01 | NUR ---
Patient in bed, no acute distress noted. VSS
[2018-09-07 06:02] LABS: BASOPHILS # (AUTO) 0.1 K/uL (0.0-8.0); BASOPHILS % (AUTO) 0.9 % (0.0-2.0); EOSINOPHILS # (AUTO) 0.3 K/uL (0.0-0.7); EOSINOPHILS % (AUTO) 4.7 % (0.0-7.0); HEMATOCRIT 44.4 % (36.7-47.1); HEMOGLOBIN 14.6 g/dL (12.5-16.3); LYMPHOCYTES # (AUTO) 1.3 K/uL (20.0-40.0); LYMPHOCYTES % (AUTO) 22.9 % (20.5-51.5); MEAN CORPUSCULAR HGB CONC 33 g/dL (32.5-36.3); MEAN CORPUSCULAR VOLUME 85.2 fL (73.0-96.2); MONOCYTES # (AUTO) 0.6 K/uL (2.0-10.0); MONOCYTES % (AUTO) 11.7 % (0.0-11.0); NEUTROPHILS # (AUTO) 3.3 K/uL (1.8-8.9); NEUTROPHILS % (AUTO) 59.8 % (38.5-71.5); PLATELET COUNT (AUTO) 223 K/uL (152-348); RED BLOOD CELL COUNT(AUTO) 5.21 MIL/uL (4.06-5.63); WHITE BLOOD COUNT (AUTO) 5.5 K/uL (3.6-10.2)
[2018-09-07 06:06] LABS: *CLARITY,URINE CLEAR (CLEAR); *COLOR,URINE YELLOW (YELLOW); PH,URINE 6.5 (5.0-8.0)
[2018-09-07 06:07] LABS: *BILIRUBIN,URIN NEGATIVE (NEGATIVE); *BLOOD, URINE NEGATIVE (NEGATIVE); *KETONES,URINE NEGATIVE (NEGATIVE); UGLUCOSE NEGATIVE (NEGATIVE)
[2018-09-07 06:08] LABS: *UROBILINOGEN,URINE NORMAL (NORMAL); LEUKOCYTE ESTERASE ,URINE NEGATIVE (NEGATIVE); NITRITE, URINE NEGATIVE (NEGATIVE)
[2018-09-07 06:10] LABS: CARBON DIOXIDE 30 mmol/L (21-32); CHLORIDE 103 mmol/L (98-107); CREATININE 0.9 mg/dL (0.6-1.3); GLUCOSE 96 mg/dL (74-106); POTASSIUM 3.8 mmol/L (3.5-5.1); UREA NITROGEN, BLOOD 17 mg/dL (7-18)
[2018-09-07 06:14] LABS: BACTERIA,URINE NONE SEEN /HPF (NONE SEEN); RBC,URINE 0-3 /HPF (0-3); SQUAMOUS EPITHELIAL CELL,UR FEW /HPF (NONE SEEN); URINE AMORPHOUS URATE FEW /HPF; WBC,URINE 0-3 /HPF (0-3)
[2018-09-07 06:18] LABS: ETHANOL 5 MG/DL (0-0)
[2018-09-07 06:21] LABS: *AMPHETAMINE, URINE NEGATIVE (NEGATIVE); *BARBITURATE, URINE NEGATIVE (NEGATIVE); *CANNABINOID, URINE NEGATIVE (NEGATIVE); *COCCAINE, URINE NEGATIVE (NEGATIVE); *OPIATE, URINE NEGATIVE (NEGATIVE); *PHENCYCLIDINE SCREEN,URINE NEGATIVE (NEGATIVE)
[2018-09-07 06:23] LABS: THYROID STIMULATING HORMONE 3.382 mIU/mL (0.358-3.740)
[2018-09-07 06:25] LABS: ALANINE AMINOTRANSFERASE 27 U/L (16-63); ALKALINE PHOSPHATASE 66 U/L (50-136); ASPARTATE AMINOTRANSFERASE 17 U/L (15-37); BILIRUBIN,DIRECT 0.1 mg/dL (0.0-0.2); BILIRUBIN,TOTAL 0.3 mg/dL (0.2-1.0); TOTAL PROTEIN, SERUM 7.6 g/dL (6.4-8.2)
[2018-09-07 06:26] LABS: ACETAMINOPHEN < 2.0 ug/mL (10-30)
--- NOTE | 2018-09-07 06:45 | NUR ---
Patient discharged to home in stable conditon. Written and verbal after care instructions given. Patient verbalizes understanding of instructions. Ambulated from ER with stable gait. All belongings with patient. VSS
[2018-09-07 06:46] VITALS: BP 137/80
== END 2018-09-07 06:47 | disposition home or self-care (01) ==
LOC: ER 05:30
DX: H81.10 Benign paroxysmal vertigo, unspecified ear (principal); F22 Delusional disorders; I10 Essential (primary) hypertension; Z79.899 Other long term (current) drug therapy
CPT/HCPCS: 36415; 80048; 80076; 80307; 81000; 81001; 84443; 85025; 99284; G0480 ×2; G0481; A4663; J8597

== ENCOUNTER 2018-09-21 23:38 | Emergency (ER) | payer MEDICAID ==
[~2018-09-21] VITALS: Ht 170.2 cm; Wt 81.2 kg
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
--- NOTE | 2018-09-22 00:06 | NUR ---
DR. MURCIA AT BEDSIDE FOR MSE.
--- NOTE | 2018-09-22 00:19 | NUR ---
Patient discharged to home in stable conditon. Written and verbal after care instructions given. Patient verbalizes understanding of instructions. patient LEFT WITH STABLE GAIT.
[2018-09-22 00:21] VITALS: BP 151/73
== END 2018-09-22 00:22 | disposition home or self-care (01) ==
LOC: ER 23:39
DX: L73.9 Follicular disorder, unspecified (principal); I10 Essential (primary) hypertension; Z79.899 Other long term (current) drug therapy
CPT/HCPCS: A4663

== ENCOUNTER 2019-04-25 15:32 | Emergency (ER) | payer MEDICAID, OTHER ==
[~2019-04-25] VITALS: Ht 170.2 cm; Wt 81.6 kg
[2019-04-25] MEDS ORDERED: IBUP-1957 PO (15:59)
[2019-04-25 16:19] LABS: BASOPHILS # (AUTO) 0.1 K/uL (0.0-8.0); EOSINOPHILS # (AUTO) 0.1 K/uL (0.0-0.7); EOSINOPHILS % (AUTO) 1.5 % (0.0-7.0); HEMATOCRIT 38.1 % (36.7-47.1); HEMOGLOBIN 12.6 g/dL (12.5-16.3); LYMPHOCYTES # (AUTO) 0.7 K/uL (20.0-40.0); LYMPHOCYTES % (AUTO) 10.8 % (20.5-51.5); MEAN CORPUSCULAR HEMOGLOBIN 28.6 uug (23.8-33.4); MEAN CORPUSCULAR HGB CONC 33 g/dL (32.5-36.3); MEAN CORPUSCULAR VOLUME 86.3 fL (73.0-96.2); MONOCYTES # (AUTO) 0.6 K/uL (2.0-10.0); MONOCYTES % (AUTO) 9.1 % (0.0-11.0); NEUTROPHILS # (AUTO) 5.2 K/uL (1.8-8.9); NEUTROPHILS % (AUTO) 77.6 % (38.5-71.5); PLATELET COUNT (AUTO) 291 K/uL (152-348); RED BLOOD CELL COUNT(AUTO) 4.41 MIL/uL (4.06-5.63); WHITE BLOOD COUNT (AUTO) 6.7 K/uL (3.6-10.2)
[2019-04-25 16:27] LABS: POTASSIUM 3.7 mmol/L (3.5-5.1)
[2019-04-25 16:28] LABS: CREATININE 0.9 mg/dL (0.6-1.3)
--- NOTE | 2019-04-25 16:34 | NUR ---
Pt is in room #2a. dr Kendrick evaluated the pt.
--- NOTE | 2019-04-25 18:25 | NUR ---
PT WAS D/C'D TO HOME AFTER DR REED RE-EVALUATION. D/C INSTRUCTIONS WERE GIVEN TO THE PT BY DR REED.
[2019-04-25 19:05] VITALS: BP 145/84
== END 2019-04-25 19:06 | disposition home or self-care (01) ==
LOC: ER 15:33
DX: S92.902A Unspecified fracture of left foot, initial encounter for closed fracture (principal); S80.12XA Contusion of left lower leg, initial encounter; F22 Delusional disorders; Z79.899 Other long term (current) drug therapy; W22.8XXA Striking against or struck by other objects, initial encounter; Y93.89 Activity, other specified; Y92.89 Other specified places as the place of occurrence of the external cause; Y99.8 Other external cause status
CPT/HCPCS: 36415; 73590; 73630; 85025; A4217; A4663

== ENCOUNTER 2020-10-01 15:09 | Emergency (ER) | payer OTHER ==
[~2020-10-01] VITALS: Ht 170.2 cm; Wt 77.1 kg
[~2020-10-01 15:09] MED LIST changes: -IBU 600 MG TABLET; +IBUP-1957 PO
--- NOTE | 2020-10-01 15:25 | NUR ---
Dr Lyons seen and examined the pt.
[2020-10-01 15:43] LABS: HEMATOCRIT 45.2 % (36.7-47.1); MEAN CORPUSCULAR HEMOGLOBIN 28.8 uug (23.8-33.4); MEAN CORPUSCULAR VOLUME 87.6 fL (73.0-96.2); PLATELET COUNT (AUTO) 213 K/uL (152-348)
[2020-10-01 15:43] LABS: *BILIRUBIN,URIN NEGATIVE (NEGATIVE); *BLOOD, URINE NEGATIVE (NEGATIVE); *CLARITY,URINE CLEAR (CLEAR); *COLOR,URINE YELLOW (YELLOW); *KETONES,URINE NEGATIVE (NEGATIVE); LEUKOCYTE ESTERASE ,URINE NEGATIVE (NEGATIVE); NITRITE, URINE NEGATIVE (NEGATIVE); UGLUCOSE NEGATIVE (NEGATIVE)
[2020-10-01 15:47] LABS: CREATININE 0.9 mg/dL (0.6-1.3); POTASSIUM 3.9 mmol/L (3.5-5.1)
[2020-10-01 15:51] LABS: BILIRUBIN,DIRECT 0.1 mg/dL (0.0-0.2); BILIRUBIN,TOTAL 0.3 mg/dL (0.2-1.0); TOTAL PROTEIN, SERUM 7.5 g/dL (6.4-8.2)
--- NOTE | 2020-10-01 16:32 | NUR ---
Patient is resting comfortably in bed with eyes closed, NAD noted.
[2020-10-01] MEDS ORDERED: HYDR-3980 PO (17:53)
[2020-10-01 19:02] VITALS: BP 101/69
--- NOTE | 2020-10-01 19:02 | NUR ---
Patient discharged to home in stable condition. Written and verbal after care instructions given. Patient verbalizes understanding of instructions. Stressed follow up or return to ER for worsening s/s.
== END 2020-10-01 19:03 | disposition home or self-care (01) ==
LOC: ER 15:09
DX: R10.9 Unspecified abdominal pain (principal); N20.0 Calculus of kidney; I10 Essential (primary) hypertension; Z85.828 Personal history of other malignant neoplasm of skin; Z79.899 Other long term (current) drug therapy; K86.9 Disease of pancreas, unspecified
CPT/HCPCS: 36415; 83690; 85025; A4663

== ENCOUNTER 2020-10-18 12:46 | Emergency (ER) | payer OTHER ==
[~2020-10-18] VITALS: Ht 170.2 cm; Wt 79.8 kg
[~2020-10-18 12:46] MED LIST changes: +HYDR-3980 PO
[2020-10-18 14:36] LABS: HEMATOCRIT 45.6 % (36.7-47.1); MEAN CORPUSCULAR HEMOGLOBIN 29.2 uug (23.8-33.4); MEAN CORPUSCULAR VOLUME 88.1 fL (73.0-96.2); PLATELET COUNT (AUTO) 236 K/uL (152-348)
[2020-10-18 14:48] LABS: BILIRUBIN,TOTAL 0.3 mg/dL (0.2-1.0); TOTAL PROTEIN, SERUM 7.3 g/dL (6.4-8.2)
[2020-10-18] MEDS ORDERED: CEPH500C2 PO (15:31)
--- NOTE | 2020-10-18 16:12 | NUR ---
PT WAS EVALUATED BY DR MARROQUIN. PT WAS D/C'd TO HOME. D/C INSTRUCTIONS GIVEN TO THE PT BY DR MARROQUIN.
[2020-10-18 16:13] VITALS: BP 133/82
== END 2020-10-18 16:13 | disposition home or self-care (01) ==
LOC: ER 12:46
DX: L03.114 Cellulitis of left upper limb (principal); N63.0 Unspecified lump in unspecified breast; N28.1 Cyst of kidney, acquired; I10 Essential (primary) hypertension; Z79.899 Other long term (current) drug therapy; F22 Delusional disorders; F41.9 Anxiety disorder, unspecified; Z85.828 Personal history of other malignant neoplasm of skin; Z87.11 Personal history of peptic ulcer disease
CPT/HCPCS: 36415; 71250; 73200; 85025; A4663

== ENCOUNTER 2021-09-30 16:49 | Emergency (ER) | payer OTHER ==
[~2021-09-30] VITALS: Ht 170.2 cm; Wt 34.5 kg
[~2021-09-30 16:49] MED LIST changes: +CEPH500C2 PO
[2021-09-30] MEDS ORDERED: LISI-782 PO (17:07)
--- NOTE | 2021-09-30 17:13 | NUR ---
[email or web address], medical screening exam in progress
[2021-09-30] MEDS ORDERED: LIDOCAINE HCL 1% 20 ML VIAL IJ ONE (17:30)
[2021-09-30] MEDS ORDERED: MORPHINE SULFATE 2 MG/1 ML DISP.SYRIN IV ONE (17:30)
[2021-09-30] MEDS ORDERED: IV NORMAL SALINE 500 ML BAG IV ONE (17:30)
[2021-09-30] MEDS ORDERED: ONDANSETRON 4 MG/2 ML VIAL IV ONE (17:30)
[2021-09-30] MEDS ORDERED: LIDOCAINE HCL 1% 20 ML VIAL ONE (17:33)
[2021-09-30] MEDS ORDERED: ONDANSETRON 4 MG/2 ML VIAL ONE (17:34)
[2021-09-30] MEDS ORDERED: MORPHINE SULFATE 4 MG/1 ML DISP.SYRIN ONE (17:34)
--- NOTE | 2021-09-30 17:35 | NUR ---
Patient is still in CT scan dept.
[2021-09-30 17:59] LABS: *BILIRUBIN,URIN NEGATIVE (NEGATIVE); *BLOOD, URINE NEGATIVE (NEGATIVE); *CLARITY,URINE CLEAR (CLEAR); *COLOR,URINE YELLOW (YELLOW); *KETONES,URINE NEGATIVE (NEGATIVE); LEUKOCYTE ESTERASE ,URINE NEGATIVE (NEGATIVE); NITRITE, URINE NEGATIVE (NEGATIVE); UGLUCOSE NEGATIVE (NEGATIVE)
[2021-09-30 18:00] LABS: HEMATOCRIT 42.3 % (36.7-47.1); MEAN CORPUSCULAR HEMOGLOBIN 29.2 uug (23.8-33.4); MEAN CORPUSCULAR VOLUME 86.5 fL (73.0-96.2); PLATELET COUNT (AUTO) 221 K/uL (152-348)
[2021-09-30 18:06] LABS: CARBON DIOXIDE 30 mmol/L (21-32); CHLORIDE 102 mmol/L (98-107); CREATININE 1.1 mg/dL (0.6-1.3); GLUCOSE 106 mg/dL (74-106); POTASSIUM 3.8 mmol/L (3.5-5.1); UREA NITROGEN, BLOOD 20 mg/dL (7-18)
[2021-09-30 18:14] LABS: ALANINE AMINOTRANSFERASE 32 U/L (16-63); ALKALINE PHOSPHATASE 60 U/L (50-136); ASPARTATE AMINOTRANSFERASE 13 U/L (15-37); BILIRUBIN,DIRECT 0.1 mg/dL (0.0-0.2); BILIRUBIN,TOTAL 0.4 mg/dL (0.2-1.0); LIPASE 98 U/L (73-393); TOTAL PROTEIN, SERUM 7.1 g/dL (6.4-8.2)
--- NOTE | 2021-09-30 18:16 | NUR ---
1745 iv started on left ac, 22g, flushed and secured. tolerated.
[2021-09-30] MEDS ORDERED: AMOX-430 PO (18:51)
--- NOTE | 2021-09-30 19:27 | NUR ---
Patient is waiting for results and disposition. Nursing report given to HELIO Garcia.
--- NOTE | 2021-09-30 21:46 | NUR ---
Patient discharged to home via private vehicle in stable condition. Ambulatory with steady gait. Written and verbal after care instructions given. Patient verbalizes understanding of instructions. Stressed follow up or return to ER for worsening s/s.
[2021-09-30 21:47] VITALS: BP 120/70
== END 2021-09-30 21:30 | disposition home or self-care (01) ==
LOC: ER 17:00
DX: L03.012 Cellulitis of left finger (principal); R10.9 Unspecified abdominal pain; I10 Essential (primary) hypertension; F22 Delusional disorders; Z85.828 Personal history of other malignant neoplasm of skin; Z79.899 Other long term (current) drug therapy
CPT/HCPCS: 99285; 74176; 96374; 10060; 80076; 80048; 81003; 83690; 85025; 84484 ×2; 36415; 93005; J3490; J2405; A4663; J2270

== ENCOUNTER 2022-02-23 17:20 | Emergency (ER) | payer OTHER ==
[~2022-02-23] VITALS: Ht 170.2 cm; Wt 79.8 kg
[~2022-02-23 17:20] MED LIST changes: -AMLO10TA4 PO; +AMOX-430 PO; -CEPH500C2 PO; -HYDR-3980 PO; -IBUP-1957 PO; +LISI-782 PO
--- NOTE | 2022-02-23 19:45 | NUR ---
PATIENT WAS CALLED TO HAVE VITAL SIGNS RE TAKEN BUT WAS NOT PRESENT IN THE WAITING ROOM OR OUTSIDE OF ER.
--- NOTE | 2022-02-23 22:00 | NUR ---
PATIENT WAS CALLED TO BE PLACED IN ROOM BUT WAS NOT PRESENT IN THE WAITING ROOM OR OUTSIDE OF ER.
--- NOTE | 2022-02-23 22:21 | NUR ---
PATIENT WAS CALLED TO BE PLACED IN ROOM BUT WAS NOT PRESENT. PATIENT WAS TRIAGED BUT NOT SEEN BY ERMD.
== END 2022-02-23 21:30 | disposition left against medical advice (07) ==
LOC: ER 18:33
DX: Z53.21 Procedure and treatment not carried out due to patient leaving prior to being seen by health care provider (principal)

== ENCOUNTER 2022-10-12 12:11 | Emergency (ER) | payer OTHER ==
[~2022-10-12] VITALS: Ht 170.2 cm; Wt 78.0 kg
[2022-10-12 12:50] LABS: HEMATOCRIT 47.5 % (36.7-47.1); MEAN CORPUSCULAR VOLUME 86.6 fL (73.0-96.2); PLATELET COUNT (AUTO) 225 K/uL (152-348)
--- NOTE | 2022-10-12 13:04 | NUR ---
Dr Steiner at the bedside for MSE.
[2022-10-12 13:24] LABS: CARBON DIOXIDE 26 mmol/L (21-32); CHLORIDE 102 mmol/L (98-107); CREATININE 0.9 mg/dL (0.6-1.3); POTASSIUM 3.7 mmol/L (3.5-5.1); UREA NITROGEN, BLOOD 18 mg/dL (7-18)
[2022-10-12] MEDS ORDERED: CLOT15CR27 TP (13:24)
--- NOTE | 2022-10-12 13:29 | NUR ---
Pt resting in bed, talking on phone, NAD noted. Continue monitoring.
[2022-10-12 13:36] LABS: ALANINE AMINOTRANSFERASE 20 U/L (16-63); ALKALINE PHOSPHATASE 94 U/L (50-136); ASPARTATE AMINOTRANSFERASE 11 U/L (15-37); BILIRUBIN,DIRECT 0.1 mg/dL (0.0-0.2); BILIRUBIN,TOTAL 0.6 mg/dL (0.2-1.0)
--- NOTE | 2022-10-12 13:36 | NUR ---
PT out of ER for Ct scan.
--- NOTE | 2022-10-12 13:50 | NUR ---
Pt back from Ct scan, resting in bed, NAD noted.
[2022-10-12 14:22] LABS: *BILIRUBIN,URIN NEGATIVE (NEGATIVE); *BLOOD, URINE NEGATIVE (NEGATIVE); *COLOR,URINE YELLOW (YELLOW); *KETONES,URINE NEGATIVE (NEGATIVE); LEUKOCYTE ESTERASE ,URINE NEGATIVE (NEGATIVE); NITRITE, URINE NEGATIVE (NEGATIVE); UGLUCOSE NEGATIVE (NEGATIVE)
[2022-10-12 14:23] LABS: *CLARITY,URINE SLIGHTLY CLOUDY (CLEAR)
[2022-10-12 15:10] LABS: *AMPHETAMINE, URINE NEGATIVE (NEGATIVE); *CANNABINOID, URINE NEGATIVE (NEGATIVE); *COCCAINE, URINE NEGATIVE (NEGATIVE); *PHENCYCLIDINE SCREEN,URINE NEGATIVE (NEGATIVE)
[2022-10-12 15:19] LABS: BACTERIA,URINE FEW /HPF (NONE SEEN); RBC,URINE 0-3 /HPF (0-3); SQUAMOUS EPITHELIAL CELL,UR FEW /HPF (NONE SEEN); WBC,URINE 0-3 /HPF (0-3)
--- NOTE | 2022-10-12 17:07 | NUR ---
IV removed. Catheter intact and site benign. Pressure and 4x4 gauze applied to site. No bleeding noted.
[2022-10-12 17:42] VITALS: BP 130/79; O2SAT 98
== END 2022-10-12 17:42 | disposition home or self-care (01) ==
LOC: ER 12:11
DX: K86.2 Cyst of pancreas (principal); F22 Delusional disorders; B35.4 Tinea corporis; Z79.2 Long term (current) use of antibiotics; Z79.899 Other long term (current) drug therapy; Z59.00 Homelessness unspecified
CPT/HCPCS: 36415; 71045; 83690; 84484; 85025; 85730; 93005; A4663

== ENCOUNTER 2022-11-09 13:00 | Emergency (ER) | payer OTHER ==
[~2022-11-09] VITALS: Ht 170.2 cm; Wt 78.0 kg
[~2022-11-09 13:00] MED LIST changes: +CLOT15CR27 TP
[2022-11-09 13:32] LABS: BASOPHILS % (AUTO) 0.6 % (0.0-2.0); EOSINOPHILS # (AUTO) 0.3 K/uL (0.0-0.7); EOSINOPHILS % (AUTO) 5.8 % (0.0-7.0); HEMATOCRIT 45.3 % (36.7-47.1); LYMPHOCYTES # (AUTO) 1.1 K/uL (0.8-4.8); LYMPHOCYTES % (AUTO) 19.9 % (20.5-51.5); MEAN CORPUSCULAR HGB CONC 33 g/dL (32.5-36.3); MEAN CORPUSCULAR VOLUME 87.5 fL (73.0-96.2); MONOCYTES # (AUTO) 0.8 K/uL (0.1-1.30); MONOCYTES % (AUTO) 14.7 % (0.0-11.0); NEUTROPHILS # (AUTO) 3.3 K/uL (1.8-8.9); PLATELET COUNT (AUTO) 218 K/uL (152-348); RED BLOOD CELL COUNT(AUTO) 5.17 MIL/uL (4.06-5.63); WHITE BLOOD COUNT (AUTO) 5.7 K/uL (3.6-10.2)
[2022-11-09 13:33] LABS: *BILIRUBIN,URIN NEGATIVE (NEGATIVE); *CLARITY,URINE CLEAR (CLEAR); *COLOR,URINE YELLOW (YELLOW); *KETONES,URINE NEGATIVE (NEGATIVE); *PROTEIN,URINE NEGATIVE (NEGATIVE); LEUKOCYTE ESTERASE ,URINE NEGATIVE (NEGATIVE); NITRITE, URINE NEGATIVE (NEGATIVE); UGLUCOSE NEGATIVE (NEGATIVE)
[2022-11-09 13:44] LABS: ALANINE AMINOTRANSFERASE 21 U/L (16-63); ALBUMIN 3.7 g/dL (3.4-5.0); ALKALINE PHOSPHATASE 72 U/L (50-136); ASPARTATE AMINOTRANSFERASE 14 U/L (15-37); BILIRUBIN,DIRECT 0.1 mg/dL (0.0-0.2); BILIRUBIN,TOTAL 0.3 mg/dL (0.2-1.0); CALCIUM 9.9 mg/dL (8.5-10.1); CARBON DIOXIDE 30 mmol/L (21-32); CHLORIDE 102 mmol/L (98-107); CREATININE 0.9 mg/dL (0.6-1.3); GLUCOSE 99 mg/dL (74-106); SODIUM SERUM 140 mmol/L (136-145); TOTAL PROTEIN, SERUM 7.4 g/dL (6.4-8.2); UREA NITROGEN, BLOOD 20 mg/dL (7-18)
[2022-11-09 13:47] LABS: *AMPHETAMINE, URINE NEGATIVE (NEGATIVE); *BARBITURATE, URINE NEGATIVE (NEGATIVE); *BENZODIAZEPINE, URINE NEGATIVE (NEGATIVE); *CANNABINOID, URINE NEGATIVE (NEGATIVE); *COCCAINE, URINE NEGATIVE (NEGATIVE); *OPIATE, URINE NEGATIVE (NEGATIVE); *PHENCYCLIDINE SCREEN,URINE NEGATIVE (NEGATIVE); FENTANYL, URINE NEGATIVE (NEGATIVE)
[2022-11-09 13:51] LABS: ACETAMINOPHEN < 2.0 ug/mL (10-30)
[2022-11-09 13:52] LABS: ETHANOL < 3 MG/DL (0-10)
[2022-11-09 13:53] LABS: DIFFERENTIAL COMMENT 1
[2022-11-09 13:53] LABS: *BLOOD, URINE TRACE (NEGATIVE)
[2022-11-09 14:16] VITALS: BP 155/80; O2SAT 98
[2022-11-09 16:34] LABS: RBC,URINE 0-3 /HPF (0-3); WBC,URINE NONE SEEN /HPF (0-3)
== END 2022-11-09 14:18 | disposition home or self-care (01) ==
LOC: ER 13:00
DX: T50.901A Poisoning by unspecified drugs, medicaments and biological substances, accidental (unintentional), initial encounter (principal); Z79.2 Long term (current) use of antibiotics; Z79.899 Other long term (current) drug therapy; Y92.89 Other specified places as the place of occurrence of the external cause
CPT/HCPCS: 36415; 85025; A4663; G0480